=== PATIENT | female | born 1995 | race Caucasian/White ===

== ENCOUNTER → 2017-01-23 | Outpatient (CLI) | payer OTHER ==
[2017-01-23 14:27] LABS: MEAN CORPUSCULAR HEMOGLOBIN 28.2 pg (27.0-33.0); MEAN CORPUSCULAR HGB CONC 34.4 g/dl (32.0-36.5); MEAN CORPUSCULAR VOLUME 81.9 fl (80.0-96.0); PLATELET COUNT, AUTOMATED 212 10^3/uL (150-450); RED CELL DISTRIBUTION WIDTH 12.8 % (11.5-14.5); WHITE BLOOD COUNT 9.9 10^3/uL (4.0-10.0)
[2017-01-23 14:38] LABS: ADD MANUAL DIFFER YES; DIFF SLIDE NUMBER 235; POSITIVE DIFF POS FLAG; POSITIVE MORPH POS FLAG
[2017-01-23 15:14] LABS: ALBUMIN 3.4 GM/DL (3.2-5.2); ALBUMIN/GLOBULIN RATIO 0.83 (1.00-1.93); ALKALINE PHOSPHATASE 78 U/L (45-117); ALT/SGPT 31 U/L (12-78); ANION GAP 8 MEQ/L (8-16); AST/SGOT 24 U/L (7-37); BILIRUBIN,TOTAL 0.6 MG/DL (0.2-1.0); BLOOD UREA NITROGEN 7 MG/DL (7-18); CALCIUM LEVEL 8.9 MG/DL (8.5-10.1); CARBON DIOXIDE LEVEL 26 MEQ/L (21-32); CHLORIDE LEVEL 106 MEQ/L (98-107); CREATININE FOR GFR 0.64 MG/DL (0.55-1.02); GLOMERULAR FILTRATION RATE > 60.0 (>60); GLUCOSE, FASTING 87 MG/DL (70-105); POTASSIUM SERUM 3.7 MEQ/L (3.5-5.1); SODIUM LEVEL 140 MEQ/L (136-145); TOTAL PROTEIN 7.5 GM/DL (6.4-8.2)
== END ==
LOC: M WUC 12:47
PROVIDERS: ATTEND Physician Assistant
DX: R11.10 Vomiting, unspecified (principal); R50.9 Fever, unspecified

== ENCOUNTER → 2017-01-28 | Outpatient (REF) | payer OTHER | LOC: M LAB REF 13:13 | PROVIDERS: ATTEND Physician Assistant | DX: R50.9 Fever, unspecified (principal); R11.2 Nausea with vomiting, unspecified ==

== ENCOUNTER → 2017-01-28 | Outpatient (REF) | payer OTHER | LOC: M LAB REF 13:19 | PROVIDERS: ATTEND Physician Assistant | DX: R50.9 Fever, unspecified (principal); R11.2 Nausea with vomiting, unspecified ==

== ENCOUNTER → 2017-01-28 | Outpatient (CLI) | payer OTHER ==
[2017-01-28 13:52] LABS: MEAN CORPUSCULAR HEMOGLOBIN 27.9 pg (27.0-33.0); MEAN CORPUSCULAR HGB CONC 34.4 g/dl (32.0-36.5); MEAN CORPUSCULAR VOLUME 81.1 fl (80.0-96.0); PLATELET COUNT, AUTOMATED 196 10^3/uL (150-450); RED CELL DISTRIBUTION WIDTH 12.9 % (11.5-14.5); WHITE BLOOD COUNT 10.2 10^3/uL (4.0-10.0)
[2017-01-28 14:04] LABS: ADD MANUAL DIFFER YES; DIFF SLIDE NUMBER 236; POSITIVE DIFF POS FLAG; POSITIVE MORPH POS FLAG
== END ==
LOC: M WUC 12:02
PROVIDERS: ATTEND Physician Assistant
DX: R50.9 Fever, unspecified (principal); R11.2 Nausea with vomiting, unspecified

== ENCOUNTER → 2017-11-14 | Outpatient (CLI) | payer BC, OTHER | LOC: M WUC 18:58 | DX: R20.0 Anesthesia of skin (principal); M79.602 Pain in left arm | CPT/HCPCS: 72052 ==

== ENCOUNTER → 2018-11-19 | Outpatient (REF) | payer OTHER | LOC: M LAB REF 13:49 | PROVIDERS: ATTEND Physician Assistant | DX: M54.5 Low back pain (principal) ==

== ENCOUNTER → 2018-11-21 | Outpatient (CLI) | payer BC, OTHER ==
[2018-11-21 18:37] LABS: BASO # 0.1 10^3/uL (0.0-0.2); BASO % 0.6 % (0.0-1.0); EOS # 0.1 10^3/uL (0.0-0.5); EOS % 1.3 % (0.0-3.0); HEMATOCRIT 40.6 % (36.0-47.0); HEMOGLOBIN 13.8 g/dl (12.0-15.5); LYMPH # 3.2 10^3/uL (1.5-5.0); MEAN CORPUSCULAR HEMOGLOBIN 28.5 pg (27.0-33.0); MEAN CORPUSCULAR VOLUME 83.9 fl (80.0-96.0); MONO # 0.7 10^3/uL (0.0-0.8); MONO % 6.6 % (0.0-5.0); NEUTROPHILS # 5.9 10^3/uL (1.5-8.5); NEUTROPHILS % 59.1 % (36.0-66.0); PLATELET COUNT, AUTOMATED 322 10^3/uL (150-450); RED BLOOD COUNT 4.84 10^6/uL (4.00-5.40); WHITE BLOOD COUNT 9.9 10^3/uL (4.0-10.0)
[2018-11-21 19:13] LABS: ALBUMIN 3.5 GM/DL (3.2-5.2); ALT/SGPT 17 U/L (12-78); BILIRUBIN,TOTAL 0.7 MG/DL (0.2-1.0); BLOOD UREA NITROGEN 11 MG/DL (7-18); CALCIUM LEVEL 9.2 MG/DL (8.5-10.1); CARBON DIOXIDE LEVEL 23 MEQ/L (21-32); CHLORIDE LEVEL 106 MEQ/L (98-107); CREATININE FOR GFR 0.71 MG/DL (0.55-1.30); GLOMERULAR FILTRATION RATE > 60.0 (>60); GLUCOSE, FASTING 90 MG/DL (70-100); LIPASE 92 U/L (73-393); POTASSIUM SERUM 4.2 MEQ/L (3.5-5.1); SODIUM LEVEL 138 MEQ/L (136-145); TOTAL PROTEIN 7.3 GM/DL (6.4-8.2)
== END ==
LOC: M WUC 09:22
PROVIDERS: ATTEND Physician Assistant
DX: R10.9 Unspecified abdominal pain (principal)

== ENCOUNTER → 2021-04-05 | Outpatient (CLI) | payer BC | LOC: M RAD 09:27 | PROVIDERS: ATTEND Physician Assistant Medical | DX: J32.9 Chronic sinusitis, unspecified (principal) ==

== ENCOUNTER → 2021-07-20 | Outpatient (REF) | payer BC | LOC: M LAB REF 21:54 | PROVIDERS: ATTEND Student in an Organized Health Care Education/Training Program | DX: J06.9 Acute upper respiratory infection, unspecified (principal); R05.9 Cough, unspecified ==

== ENCOUNTER → 2023-09-01 | Outpatient (CLI) | payer BC | LOC: M WUC 15:09 | PROVIDERS: ATTEND Physician Assistant | DX: S80.01XA Contusion of right knee, initial encounter (principal); Y93.9 Activity, unspecified; Y92.9 Unspecified place or not applicable ==

== ENCOUNTER → 2024-06-22 | Outpatient (CLI) | payer BC ==
[2024-06-22 16:40] LABS: HEMATOCRIT 36.8 % (36.0-47.0); HEMOGLOBIN 12.7 g/dl (12.0-15.5); MEAN CORPUSCULAR HEMOGLOBIN 29.1 pg (27.0-33.0); MEAN CORPUSCULAR HGB CONC 34.5 g/dl (32.0-36.5); MEAN CORPUSCULAR VOLUME 84.4 fl (80.0-96.0); PLATELET COUNT, AUTOMATED 242 10^3/uL (150-450); RED BLOOD COUNT 4.36 10^6/uL (4.00-5.40); WHITE BLOOD COUNT 11.2 10^3/uL (4.0-10.0)
[2024-06-22 17:14] LABS: Trichomonas vaginalis (AMP) NOT DETECTED (NEGATIVE)
[2024-06-22 17:32] LABS: HIV 1&2 SCREEN NEGATIVE (NEGATIVE)
[2024-06-22 17:37] LABS: GC DNA AMPLIFICATION NEGATIVE (NEGATIVE)
[2024-06-22 17:40] LABS: HEPATITIS C VIRUS ABY INDEX 0.03 INDEX (<0.8)
== END ==
LOC: M PLALAB 11:51
PROVIDERS: ATTEND Advanced Practice Midwife
DX: Z34.01 Encounter for supervision of normal first pregnancy, first trimester (principal)

== ENCOUNTER → 2024-09-02 | Outpatient (CLI) | payer BC | LOC: M RAD 15:17 | PROVIDERS: ATTEND Nurse Practitioner Family | DX: Z34.80 Encounter for supervision of other normal pregnancy, unspecified trimester (principal) ==

== ENCOUNTER → 2024-10-08 | Outpatient (CLI) | payer BC ==
[2024-10-08 15:31] LABS: GLUCOSE CHALLENGE TEST 1 HOUR 105 MG/DL (LESS THAN 140)
[2024-10-08 15:41] LABS: PLATELET COUNT, AUTOMATED 198 10^3/uL (150-450)
[2024-10-08 15:59] LABS: HIV 1&2 SCREEN NEGATIVE (NEGATIVE)
[2024-10-08 16:07] LABS: HEPATITIS C VIRUS ABY INDEX < 0.02 INDEX (<0.8)
[2024-10-08 16:17] LABS: Trichomonas vaginalis (AMP) NOT DETECTED (NEGATIVE)
[2024-10-08 16:41] LABS: GC DNA AMPLIFICATION NEGATIVE (NEGATIVE)
== END ==
LOC: M PLALAB 11:08
PROVIDERS: ATTEND Advanced Practice Midwife
DX: Z34.02 Encounter for supervision of normal first pregnancy, second trimester (principal)

== ENCOUNTER → 2024-12-08 | Outpatient (REF) | payer BC | LOC: M PLALAB 07:49 | PROVIDERS: ATTEND Nurse Practitioner Family | DX: Z3A.36 36 weeks gestation of pregnancy (principal) ==

== ENCOUNTER → 2024-12-10 | Outpatient (CLI) | payer BC | LOC: M WHC 12:08 | PROVIDERS: ATTEND Advanced Practice Midwife | DX: O26.849 Uterine size-date discrepancy, unspecified trimester (principal); Z3A.36 36 weeks gestation of pregnancy ==

== ENCOUNTER 2024-12-29 07:42 | Inpatient (IN) | payer BC ==
[~2024-12-29] VITALS: Ht 170.2 cm; Wt 101.3 kg
[2024-12-29] MEDS ORDERED: LEXA1TAB PO (08:06)
[2024-12-29] MEDS ORDERED: PRENMIS3 PO (08:06)
[2024-12-29] MEDS ORDERED: HOME MED LIST COMPLETE! XX SCH (08:10)
[2024-12-29 08:12] VITALS: BP 113/82
[2024-12-29] MEDS ORDERED: OXYTOCIN DRIP 30 UNITS in IV 1 EA IV PRN (08:35)
[2024-12-29] MEDS ORDERED: LIDOCAINE 1% MDV 20 ML VIAL INFIL PRN (08:35)
[2024-12-29] MEDS ORDERED: TRANEXAMIC ACID INJection 1,000 MG in NS 100 ML IV PRN (08:35)
[2024-12-29] MEDS ORDERED: CARBOPROST TROMETHAMINE 250 MCG/ML AMP IM PRN (08:35)
[2024-12-29] MEDS ORDERED: OXYTOCIN INJ 10UNITS/ML 1ML VIAL IM PRN (08:35)
[2024-12-29] MEDS ORDERED: METHYLERGONOVINE MALEATE 0.2 MG/ML 1 ML VIAL IM PRN (08:35)
[2024-12-29 08:42] LABS: PLATELET COUNT, AUTOMATED 199 10^3/uL (150-450)
[2024-12-29] MEDS: miSOPROStol 50 MCG 1/2 TABLET PO SCH (09:13)
[2024-12-29 09:36] LABS: HIV 1&2 SCREEN NEGATIVE (NEGATIVE)
[2024-12-29 09:43] LABS: HEPATITIS C VIRUS ABY INDEX < 0.02 INDEX (<0.8)
[2024-12-29 12:04] VITALS: BP 123/70
[2024-12-29 14:57] VITALS: BP 124/75
[2024-12-29 17:45] VITALS: BP 128/72
[2024-12-30] VITALS (22 sets, daily range): BP systolic 90–138; BP diastolic 51–90
[2024-12-30] MEDS: LR 1,000 ML IV SCH (00:45)
[2024-12-30] MEDS: ESCITALOPRAM OXALATE 10 MG TABLET PO SCH (10:07)
[2024-12-30] MEDS: OXYTOCIN DRIP 30 UNITS in IV 1 EA IV SCH ×2 (10:08→23:35)
[2024-12-30] MEDS: ceFAZolin SODIUM 2 GM in DEXTROSE 5% (D5W) ADV/MINI-BAG 50 ML IV ONE (23:05)
[2024-12-30] MEDS: BICITRA 30 ML SOLN UDC PO ONE (23:20)
[2024-12-30] MEDS: AZITHROMYCIN INJ 500 MG, VIAL MATE ADAPTER 1 EACH in NS 250 ML IV ONE (23:20)
[2024-12-30] MEDS ORDERED: MORPHINE 4 MG/ML 1 ML VIAL IV PRN (23:35)
[2024-12-30] MEDS ORDERED: ANUSOL HC CREAM 30 GM TOP PRN (23:35)
[2024-12-30] MEDS ORDERED: PERCOCET 5MG/325MG TAB PO PRN ×2 (23:35)
[2024-12-30] MEDS ORDERED: ONDANSETRON 4MG/2ML VIAL IV PRN ×2 (23:35)
[2024-12-30] MEDS ORDERED: SIMETHICONE 80MG CHEW TAB PO PRN (23:35)
[2024-12-31] VITALS (10 sets, daily range): BP systolic 101–116; BP diastolic 55–67; TEMP 97.9; O2SAT 97–99
[2024-12-31] MEDS ORDERED: OXYTOCIN 30UNITS IN 0.9% NaCl 500ML IV BAG IV ONE (00:23)
[2024-12-31] MEDS ORDERED: PHENYLephrine 500MCG 5ML (100MCG/ML) SYRINGE As Ordered ONE (00:23)
[2024-12-31] MEDS ORDERED: MORPHINE PRES-FREE INJ 10 MG/10 ML VIAL As Ordered ONE (00:23)
[2024-12-31] MEDS ORDERED: ONDANSETRON 4MG/2ML VIAL As Ordered ONE (00:23)
[2024-12-31] MEDS ORDERED: KETOROLAC 30 MG/ML 1 ML VIAL As Ordered ONE (00:23)
[2024-12-31] MEDS ORDERED: PERCOCET PO (01:01)
[2024-12-31] MEDS ORDERED: COLA100C5 PO (01:01)
[2024-12-31] MEDS ORDERED: IBUP80TA PO (01:01)
[2024-12-31] MEDS: LR 1,000 ML IV ONE (01:49)
[2024-12-31] MEDS: OXYTOCIN DRIP 30 UNITS in IV 1 EA IV PRN (01:49)
[2024-12-31] MEDS: KETOROLAC 30 MG/ML 1 ML VIAL IV SCH (05:39)
[2024-12-31 08:58] LABS: PLATELET COUNT, AUTOMATED 173 10^3/uL (150-450)
[2024-12-31] MEDS: DOCUSATE SODIUM 100 MG CAPSULE PO SCH (09:19)
[2024-12-31] MEDS: PRENATAL VITAMINS CHEWABLE TABLET PO SCH (09:19)
[2025-01-01 01:15] VITALS: BP 118/58; O2SAT 99
[2025-01-01] MEDS: IBUPROFEN 800 MG TAB PO SCH (01:15)
[2025-01-01] MEDS: MEASLES,MUMPS,RUBELLA VACCINE INJ (MMR-II) SC.IMMUN ONE (05:52)
[2025-01-01] MEDS: RHOGAM 300MCG (1500IU) INJ IM SCH (05:52)
[2025-01-01 06:17] VITALS: BP 115/67; O2SAT 96
[2025-01-01 10:00] VITALS: BP 124/78; O2SAT 98
[2025-01-01 14:00] VITALS: BP 123/69; O2SAT 98
[2025-01-01] MEDS: ACETAMINOPHEN 500 MG TAB PO PRN (16:13)
== END 2025-01-01 16:20 | disposition home or self-care (01) | DRG 540 ==
LOC: M LDI 07:42 → M OBS 12-31 02:27
PROVIDERS: ADMIT Advanced Practice Midwife; ATTEND Obstetrics & Gynecology
PROC: 3E0P7GC Introduction of Other Therapeutic Substance into Female Reproductive, Via Natural or Artificial Opening (ICD-10-PCS; 2024-12-29)
PROC: 10D00Z1 Extraction of Products of Conception, Low, Open Approach (ICD-10-PCS; principal; 2024-12-31)
DX: O36.63X0 Maternal care for excessive fetal growth, third trimester, not applicable or unspecified (principal); O61.0 Failed medical induction of labor; Z3A.39 39 weeks gestation of pregnancy; Z79.899 Other long term (current) drug therapy; O62.0 Primary inadequate contractions; Z37.0 Single live birth